=== PATIENT | female | born 1990 | race Two or more races ===

== ENCOUNTER 2021-09-21 17:02 | Emergency (ER) | payer OTHER ==
[~2021-09-21] VITALS: Ht 154.9 cm; Wt 77.1 kg
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
--- NOTE | 2021-09-21 18:20 | NUR ---
AT BED SIDE
[2021-09-21] MEDS ORDERED: ONDANSETRON HCL/PF 4 MG/2 ML VIAL IVP ONE (19:00)
[2021-09-21] MEDS ORDERED: MORPHINE SULFATE INJ 2 MG/ML DISP.SYRIN IV ONE (19:00)
[2021-09-21] MEDS ORDERED: ONDANSETRON HCL/PF 4 MG/2 ML VIAL ONE (19:02)
[2021-09-21] MEDS ORDERED: MORPHINE SULFATE INJ 4 MG/ML DISP.SYRIN ONE (19:03)
--- NOTE | 2021-09-21 19:39 | NUR ---
WAIVER SIGNED AND PLACED IN PATIENT CHART
--- NOTE | 2021-09-21 21:02 | NUR ---
Patient discharged to home in stable condition. Written and verbal after care instructions given. Patient verbalizes understanding of instruction. IV removed. Catheter intact and site benign. Pressure and 4x4 applied to site. No bleeding noted. PT ambulatory with a steady gait
[2021-09-21 21:03] VITALS: BP 121/69
== END 2021-09-21 21:03 | disposition home or self-care (01) ==
LOC: ER 17:07
DX: O26.899 Other specified pregnancy related conditions, unspecified trimester (principal); S13.4XXA Sprain of ligaments of cervical spine, initial encounter; Z3A.00 Weeks of gestation of pregnancy not specified; V49.9XXA Car occupant (driver) (passenger) injured in unspecified traffic accident, initial encounter; Y93.89 Activity, other specified; Y92.89 Other specified places as the place of occurrence of the external cause; Y99.8 Other external cause status
CPT/HCPCS: 72125; 96374; 96375; 99284; J2270; J2405